=== PATIENT | female | born 1940 | race African-American/Black ===

== ENCOUNTER 2018-12-12 01:59 | Inpatient (IN) | payer OTHER, MEDICARE ==
[~2018-12-12] VITALS: Ht 160 cm; Wt 70.8 kg
[2018-12-12 02:05] VITALS: Ht 160 cm; Wt 70.8 kg
[2018-12-12 02:47] LABS: BASOPHIL % 0.1 % (0-2); PLATELET COUNT 190 x10^3mcL (130-400); RED CELL DISTRIBUTION WIDTH 15.6 % (11.5-14.5)
[2018-12-12 02:53] LABS: CALCIUM 9.1 mg/dL (8.5-10.1); CHLORIDE SERUM 99 mmol/L (98-107); CREATININE SERUM 1.3 mg/dL (0.6-1.0); GLUCOSE SERUM 130 mg/dL (74-106); POTASSIUM SERUM 4.7 mmol/L (3.5-5.1); SODIUM SERUM 134 mmol/L (136-145)
[2018-12-12 02:57] LABS: ALBUMIN 3.6 g/dL (3.4-5.0); ALKALINE PHOSPHATASE 64 U/L (46-116); ALT/SGPT 20 U/L (14-59); AST/SGOT 15 U/L (15-37); BILIRUBIN TOTAL 0.23 mg/dL (0.20-1.00); LIPASE 194 IU/L (73-393)
[2018-12-12 04:09] LABS: microscopic required? YES; urine erythrocyte 2+ (NEGATIVE)
[2018-12-12] MEDS ORDERED: METFORMIN HCL500 MG PO (04:53)
[2018-12-12] MEDS ORDERED: RANITIDINE HCL150 M1 PO (04:53)
[2018-12-12] MEDS ORDERED: LYRICA50 M1 PO (04:53)
[2018-12-12 05:46] LABS: CHOLESTEROL/HDL RATIO 1.9
[2018-12-12 05:51] LABS: FREE T4 1.06 ng/dL (0.76-1.46); T4(THYROXINE) 6.5 ug/dL (4.7-13.3)
[2018-12-12 06:28] VITALS: BP 106/59
[2018-12-12 10:03] VITALS: BP 109/55
[2018-12-12 13:21] LABS: T3 TOTAL 0.74 ng/mL
[2018-12-12 13:32] VITALS: BP 123/47
[2018-12-12 17:26] VITALS: BP 103/55
[2018-12-12 20:48] VITALS: BP 105/48
[2018-12-13 05:59] VITALS: BP 126/59
[2018-12-13 06:39] LABS: PLATELET COUNT 157 x10^3mcL (130-400)
[2018-12-13 06:40] LABS: CALCIUM 8.4 mg/dL (8.5-10.1); CARBON DIOXIDE 25.8 mmol/L (21-32); CHLORIDE SERUM 104 mmol/L (98-107); GLUCOSE SERUM 122 mg/dL (74-106); POTASSIUM SERUM 4.2 mmol/L (3.5-5.1); SODIUM SERUM 140 mmol/L (136-145)
[2018-12-13 06:48] LABS: RED CELL DISTRIBUTION WIDTH 15.8 % (11.5-14.5)
[2018-12-13 09:46] VITALS: BP 105/49
[2018-12-13 11:21] LABS: BAND NEUTROPHIL 10 % (0-10); MONOCYTE 14 % (0-7); SEGMENTED NEUTROPHILS 68 % (37-75)
[2018-12-13 11:22] LABS: PLATELET MORPHOLOGY PLATELETS DECREASED; rbc morphology (normal/abnorm) ABNORMAL (NORMAL)
[2018-12-13 13:14] VITALS: BP 96/53
[2018-12-13 17:40] VITALS: BP 111/53
[2018-12-13 20:46] VITALS: BP 97/51
[2018-12-14 05:10] VITALS: BP 140/57
[2018-12-14 06:19] LABS: PLATELET COUNT 160 x10^3mcL (130-400)
[2018-12-14 06:44] LABS: CALCIUM 8.3 mg/dL (8.5-10.1); CARBON DIOXIDE 28.2 mmol/L (21-32); CHLORIDE SERUM 105 mmol/L (98-107); CREATININE SERUM 0.9 mg/dL (0.6-1.0); GLUCOSE SERUM 120 mg/dL (74-106); POTASSIUM SERUM 4.1 mmol/L (3.5-5.1); SODIUM SERUM 143 mmol/L (136-145)
[2018-12-14 06:52] LABS: RED CELL DISTRIBUTION WIDTH 15.5 % (11.5-14.5)
[2018-12-14 08:28] LABS: BAND NEUTROPHIL 7 % (0-10); BASOPHIL 0 % (0-2); MONOCYTE 4 % (0-7); SEGMENTED NEUTROPHILS 24 % (37-75)
[2018-12-14 08:29] LABS: PLATELET MORPHOLOGY PLATELETS NORMAL; rbc morphology (normal/abnorm) NORMAL (NORMAL)
[2018-12-14 09:34] VITALS: BP 112/61
[2018-12-14] MEDS ORDERED: LYRICA75 M1 PO (13:41)
[2018-12-14] MEDS ORDERED: EPZICOM1 TAB (13:41)
[2018-12-14 13:52] VITALS: BP 111/60
[2018-12-14 18:03] VITALS: BP 104/53
[2018-12-14 21:28] VITALS: BP 98/58
[2018-12-15 05:30] VITALS: BP 111/56
[2018-12-15 08:19] LABS: CALCIUM 8.5 mg/dL (8.5-10.1); CARBON DIOXIDE 29.2 mmol/L (21-32); CHLORIDE SERUM 105 mmol/L (98-107); CREATININE SERUM 0.9 mg/dL (0.6-1.0); GLUCOSE SERUM 130 mg/dL (74-106); PLATELET COUNT 171 x10^3mcL (130-400); POTASSIUM SERUM 3.9 mmol/L (3.5-5.1); SODIUM SERUM 143 mmol/L (136-145)
[2018-12-15 08:23] LABS: RED CELL DISTRIBUTION WIDTH 15.5 % (11.5-14.5)
[2018-12-15 09:15] VITALS: BP 104/62
[2018-12-15 11:01] LABS: BAND NEUTROPHIL 4 % (0-10); BASOPHIL 0 % (0-2); MONOCYTE 12 % (0-7); SEGMENTED NEUTROPHILS 29 % (37-75)
[2018-12-15 11:03] LABS: PLATELET MORPHOLOGY PLATELETS NORMAL; rbc morphology (normal/abnorm) NORMAL (NORMAL)
[2018-12-15 16:46] VITALS: BP 110/63
[2018-12-15 20:57] VITALS: BP 103/51
[2018-12-16 05:29] VITALS: BP 105/54
[2018-12-16] MEDS ORDERED: NITROFURANTOIN100 MG PO (09:13)
[2018-12-16 09:19] VITALS: BP 104/51
[2018-12-16 10:44] VITALS: BP 104/51
== END 2018-12-16 11:54 | disposition home or self-care (01) | DRG 463 ==
LOC: ED 01:59 → DU 04:51 → MU 12-14 16:48
PROVIDERS: Emergency Medicine; Internal Medicine; ADMIT General Practice
DX: N10 Acute pyelonephritis (principal); E11.40 Type 2 diabetes mellitus with diabetic neuropathy, unspecified; I10 Essential (primary) hypertension; G89.29 Other chronic pain; D50.9 Iron deficiency anemia, unspecified; M54.5 Low back pain; M19.90 Unspecified osteoarthritis, unspecified site; K59.00 Constipation, unspecified; K57.30 Diverticulosis of large intestine without perforation or abscess without bleeding; B96.20 Unspecified Escherichia coli [E. coli] as the cause of diseases classified elsewhere; Z79.84 Long term (current) use of oral hypoglycemic drugs; Z79.899 Other long term (current) drug therapy
CPT/HCPCS: 82962; 83880; 84439; J0696; J1956; J3490; J7030